=== PATIENT | male | born 1960 | race Caucasian/White ===

== ENCOUNTER 2022-07-18 08:35 | Outpatient (CLI) | payer BC, SELFPAY ==
--- OUTSIDE RECORDS SUMMARY | 2022-07-18 08:40 | XMS_ITS | Encounter Summary ---
:1960 Author Organization [facility] Address [address] [place] [address] Care Team Providers Name Role Phone [facility] Primary Care Provide r Encounter Details Date Type Department Care Team Description 09/20/2020 Travel Social History Tobacco Use Types Packs/Day Years Used Date Smoking Tobacco: Never Smokeless Tobacco: Never Alcohol Use Standard Drinks/Week Comments Yes 0 (1 standard drink = 0.6 oz pure alcoho l) rare Sex Assigned at Date Recorded Not on file COVID-19 Exposure Response Date Recorded In the last month, have you been in contact with No / Unsure 09/20/2020 8: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 documented as of this encounter Plan of Treatment Not on filedocumented as of this encounter Visit Diagnoses Not on filedocumented in this encounter Care Teams Hospital Mortician Relationship Specialty Start Date End Date [facility] PCP - General 09/07/201999 [place] [address] documented as of this encounter
--- OUTSIDE RECORDS SUMMARY | 2022-07-18 08:40 | XMS_ITS | Encounter Summary ---
:1960 Author Organization [place] Address [address] [place] [address]. [place] [address] Care Team Providers Name Role Phone Clinic, [facility] Primary Care Provide r Encounter Details Date Type Department Care Team Description 09/17/2020 Hospital Encounter [facility] Ann-Marie Drummond for [facility] MD [place] screening for other [address] [place] OPHTHALMIC viral diseases [place], [place] PLASTIC SURGERY [id number] [address] [facility] [phone] [facility] [address] [place] [address] Social History Tobacco Use Types Packs/Day Years Used Date Smoking Tobacco: Never Assessed Sex Assigned at Date Recorded Not on file COVID-19 Exposure Response Date Recorded In the last month, have you been in contact Unable to assess 09/17/2020 7:10 AM EMBEDDED SOFTWARE ARCHITECT with someone who was confirmed or suspected to have Coronavirus / COVID-19? documented as of this encounter Medications at Time of Discharge Medication Sig Dispensed Refills Start Date End Date erythromycin (ROMYCIN) 5 Apply topically 3 7 g 1 09/2020 MG/GM ophthalmic times daily Please ointmentIndications: Brow dispense two tubes ptosis, Dermatochalasis of -- apply thin both upper eyelids ribbon to upper eyelid and brow incisions 3x per day until sutures are removed. HYDROcodone-acetaminophen Take 1 tablet by 10 tablet 0 09/202009/23/2020 (NORCO) 5-325 MG mouth every 6 hours tabletIndications: Brow as needed for ptosis, Dermatochalasis of severe pain both upper eyelids documented as of this encounter Plan of Treatment Not on filedocumented as of this encounter Procedures Procedure Name Priority Date/Time Associated Diagnosis Comme nts SARS-COV-2 Routine 09/17/2020 11:00 AM Encounter for Results for this (COVID-19) VIRUS EMBEDDED SOFTWARE ARCHITECT screening for other proc edure are in RT-PCR viral diseases the results section. COVID-19 VIRUS Routine 09/17/2020 11:00 AM Encounter for Resul ts for this (CORONAVIRUS) BY EMBEDDED SOFTWARE ARCHITECT screening for other proc edure are in PCR viral diseases the results section. documented in this encounter Results SARS-CoV-2 COVID-19 Virus (Coronavirus) by PCR (09/17/2020 11:00 AM EMBEDDED SOFTWARE ARCHITECT) [facility] Method Time Signature SARS-CoV-2 Nasopharyngeal 09/18/2020 [facility] Virus 6:14 AM [facility] SARS-CoV-2 NEGATIVE 09/18/2020 [facility] PCR Result 6:14 AM [facility] Comment: SARS-CoV2 (COVID-19) RNA not de tected, presumed negative. SARS-CoV-2 PCR Comment (Note) 09/18/2020 6:14 A M [facility] Comment: Testing was performed using the kira SA RS-CoV-2 & Influenza A/B Assay on the kira Chelo System. This test should be ordered for the dete ction of SARS-COV-2 in individuals who meet SARS-CoV-2 clinical and/or epidemi ological criteria. Test performance is unknown in asymptomatic patients. This test is for in vitro diagnostic use under the FDA EUA for laboratories certified under CLIA to perform moderate and/or high complexity testing. This test has not been FDA cleared or approve d. A negative test does not rule out the pr esence of PCR inhibitors in the specimen or target RNA in concentration below the limit of detection for the assay. The possibility of a false negati ve should be considered if the patient's recent exposure or clinical pr esentation suggests COVID-19. [facility] are certi fied under the Clinical Laboratory Improvement Amendments of 1988 (CLIA-88) as qualified to perform moderate and/or high complexity laboratory testin g. Specimen (Source) Anatomical Collection Method Collection Time Re ceived Time Location / / Volume Laterality Specimen from 09/17/2020 11:00 09/17/2020 nasopharyngeal AM EMBEDDED SOFTWARE ARCHITECT 11:01 AM EMBEDDED SOFTWARE ARCHITECT structure (specimen) Ann-Marie Drummond MD LAB - MICRO GENERAL ORDERABL ES Performing Organization Address City/State/ZIP Code Phon e Number [facility] [address] [place] [address] [facility] Asymptomatic COVID-19 Virus (Coronavirus) by PCR (09/17/2020 11:00 AM EMBEDDED SOFTWARE ARCHITECT) Component Value Ref Test Analysis Performed At [facility] gist Range Method Time Signature COVID-19 Nasopharyngeal 09/17/2020 [place] Virus PCR to 11:00 AM RIDGES U [facility] Source COVID-19 Test received-See 09/17/2020 INFECTIOUS Virus PCR to reflex to IDDL 2:33 PM EMBEDDED SOFTWARE ARCHITECT DISEASES U [facility] - test SARS CoV2 DIAGNOSTIC Result (COVID-19) Virus LABORATORY, RT-PCR [facility] Specimen (Source) Anatomical Collection Method Collection Time Re ceived Time Location / / Volume Laterality Specimen from 09/17/2020 11:00 09/17/2020 nasopharyngeal AM EMBEDDED SOFTWARE ARCHITECT 11:01 AM EMBEDDED SOFTWARE ARCHITECT structure (specimen) Ann-Marie Drummond MD LAB - MICRO GENERAL ORDERABL ES Performing Organization Address City/State/ZIP Code Phon e Number INFECTIOUS DISEASES [address] [place] [address] DIAGNOSTIC LABORATORY, [facility] [address] [phone] documented in this encounter Visit Diagnoses Diagnosis Encounter for screening for other viral diseases documented in this encounter Care Teams Wet Pan Mixer Relationship Specialty Start Date End Date Clinic, [facility] PCP - General 09/07/201999 [place] [address] documented as of this encounter
--- OUTSIDE RECORDS SUMMARY | 2022-07-18 08:40 | XMS_ITS | Clinical Summary ---
:1960 Author Organization [place] Address [address] [place] [address] Care Team Providers Name Role Phone Clinic, [facility] Primary Care Provide r Allergies No known active allergies Medications Medication Sig Dispensed Refills Start Date End Date Status erythromycin (ROMYCIN) Apply topically 3 7 g 1 Active 5 MG/GM ophthalmic times daily ointmentIndications: Please dispense Brow ptosis, two tubes -- Dermatochalasis of both apply thin ribbon upper eyelids to upper eyelid and brow incisions 3x per day until sutures are removed. Social History Tobacco Use Types Packs/Day Years Used Date Smoking Tobacco: Never Smokeless Tobacco: Never Alcohol Use Standard Drinks/Week Comments Yes 0 (1 standard drink = 0.6 oz pure alcoho l) rare Sex Assigned at Date Recorded Not on file Last Filed Vital Signs Vital Sign Reading Time Taken Comments Blood Pressure 116/74 09/20/2020 1:27 PM SOLE LAYER Pulse 56 09/20/2020 1:27 PM SOLE LAYER Temperature 36 ??C (96.8 ??F) 09/20/2020 1:27 PM SOLE LAYER Respiratory Rate 16 09/20/2020 1:27 PM SOLE LAYER Oxygen Saturation 99% 09/20/2020 12:30 PM SOLE LAYER Inhaled Oxygen Concentration - - Weight 97.3 kg (214 lb 6.4 oz) 09/20/2020 8:43 AM SOLE LAYER Height 185.4 cm (6' 1) 09/20/2020 8:43 AM SOLE LAYER Body Mass Index 28.29 09/20/2020 8:43 AM SOLE LAYER Plan of Treatment Health Maintenance Due Date Last Done Comments ADVANCE CARE PLANNING 1960 ANNUAL REVIEW OF HM ORDERS 1960 CT COLONOGRAPHY 1960 FIT-DNA (Cologuard) 1960 FIT 1960 FLEX SIG 1960 HEPATITIS B IMMUNIZATION (1 1960 of 3 - 3-dose series) YEARLY PREVENTIVE VISIT 1960 COVID-19 Vaccine (#1) 01/01/1961 COLONOSCOPY 1970 COLORECTAL CANCER SCREENING 1970 HIV SCREENING 1975 HEPATITIS C SCREENING 1978 LIPID 1995 ZOSTER IMMUNIZATION (1 of 2010 2) DTAP/TDAP/TD IMMUNIZATION 05/06/2016 05/06/2006 (2 - Td or Tdap) PHQ-2 (once per calendar 08/19/2021 year) INFLUENZA VACCINE (#1) 2022 08/25/2020, 08/20/2019, 09/12/2017, Additional history exists IPV IMMUNIZATION Aged Out No longer eligi ble based on patient 's age to complete this topic MENINGITIS IMMUNIZATION Aged Out No longe r eligible based on patient 's age to complete this topic Pneumococcal Vaccine: Aged Out No longer eligible Pediatrics (0 to 5 Years) based on patient's age and At-Risk Patients (6 to to co mplete this topic 64 Years) Insurance Payer Benefit Plan / Subscriber ID Effective Dates Phone Addre ss Type Group BCBS [place] OF [place] [id number] 2018-Mony [phone] [address] [address] [address] [place] [address] Care Teams Negative Cutter Relationship Specialty Start Date End Date Clinic, [facility] PCP - General 09/07/201999 [place], [place] [id number]
--- OUTSIDE RECORDS SUMMARY | 2022-07-18 08:40 | XMS_ITS | Encounter Summary ---
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] Periop Services Procedures BILATERAL UPPER LID BLEPHAROPLASTY, BILATERAL DIRECT BROWPLASTY [address] [place] [address] Phone: Referral ID Status Reason Start Date Expiration Date Visits Requ ested Visits Authorized [id number] 1 1 Encounter Details Date Type Department Care Team Description 09/20/2020 Anesthesia Event [facility] Sherice Kwok MD [facility] [address] [place] [id number] [facility] Liz Milan, CLINICAL STAFF PHARMACIST [facility] [address] [phone] Services [address] [place] [address] Anesthesia Record Procedure Summary Procedure Name Responsible Anesthesia Start Anesthesia Stop Anesthesiologist Time Time BILATERAL UPPER LID Ranulfo Kwok, 09/20/20 1040 10/09 1152 MD MICHELLE BILATERAL DIRECT BROWPLASTY (Bilateral: Eye) Events Date Time Event Comment 09/20/2020 0918 1040 An Start 1040 An Start Data 1057 AN INCISION 1146 an stop data 1152 An Stop Electronically s igned by Liz Milan APRN CRNA on September 20, 2020 11:52 AM Name Total ePHEDrine 5 mg/mL 5 mg fentaNYL (SUBLIMAZE) injection 100 mcg lidocaine 2% 40 mg midazolam 1mg/mL 2 mg ondansetron 2mg/mL 4 mg propofol (DIPRIVAN) injection 10 mg/mL vial 265.14 mg No abx ordered pre-op 1 each LR 200 mL Agents Name NO HELIOX O2 N2O Air Exp Sevoflurane Exp Isoflurane Exp Desflurane Exp N2O O2 Delivery Device Ins Sevoflurane Ins Isoflurane Ins Desflurane O2 Auxiliary Blood No blood administrations on file. Lines, Drains, and Airways Type Details Placement Removal Incision/Surgical Site 09/20/20; 1111; Left; 09/20/20 1111 by Megha Calderon RN Incision/Surgical Site 09/20/20; 1111; Right; 09/20/20 1111 by EyeMegha Meyers RN Incision/Surgical Site 09/20/20; 1111; Left; 09/20/20 1111 by Upper Eyelid Megha Emmanuel RN Incision/Surgical Site 09/20/20; 1111; Right; 09/20/20 1111 by Upper Eyelid Megha Emmanuel RN Peripheral IV 09/20/20; 0921; 20 G; 09/20/20 0921 by 09/20/20 1300 by Left; Hand; Enma Sy Cavlan, Edson ael J, Chlorhexidine; None; RN RN Tolerated well documented in this encounter Social History Tobacco Use Types Packs/Day Years Used Date Smoking Tobacco: Never Smokeless Tobacco: Never Alcohol Use Standard Drinks/Week Comments Yes 0 (1 standard drink = 0.6 oz pure alcoho l) rare Sex Assigned at Date Recorded Not on file COVID-19 Exposure Response Date Recorded In the last month, have you been in contact with No / Unsure 09/20/2020 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 Anesthesia Type: MAC Note: Postop Pain Control: Uneventful Sign Out: Well controlled pain PONV: No Neuro/Psych: Uneventful Sign Out: Acceptable/Baseline neuro status Airway/Respiratory: Uneventful Sign Out: Acceptable/Baseline resp. status CV/Hemodynamics: Uneventful Sign Out: Acceptable CV status Other NRE: NONE DID A NON-ROUTINE EVENT OCCUR? 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 No past surgical history on file. No Known Allergies Social History Tobacco Use ??? Smoking status: Not on file Substance Use Topics ??? Alcohol use: Not on file Wt Readings from Last 1 Encounters: No data found for Wt Anesthesia Evaluation Pt has had prior anesthetic. Type: General. No history of anesthetic complications ROS/MED HX ENT/Pulmonary: Neurologic: Cardiovascular: METS/Exercise Tolerance: Hematologic: Musculoskeletal: (+) arthritis, GI/Hepatic: Renal/Genitourinary: (+) BPH, Endo: Psychiatric/Substance Use: Infectious Disease: Malignancy: Other: OUTSIDE LABS: CBC: No results found for: WBC, HGB, HCT, PLT BMP: No results found for: NA, POTASSIUM, CHLORIDE, CO2, BUN, CR, GLC COAGS: No results found for: PTT, INR, FIBR POC: No results found for: BGM, HCG, HCGS HEPATIC: No results found for: ALBUMIN, PROTTOTAL, ALT, AST, GGT, ALKPHOS, BILITOTAL, BILIDIRECT, ROSALIE OTHER: No results found for: PH, LACT, A1C, MIKE, PHOS, MAG, LIPASE, AMYLASE, TSH, T4, T3, CRP, SED Anesthesia Plan History & Physical Review ASA Status: 1. Plan for MAC Reason for MAC: Deep or markedly invasive procedure (G8). PONV prophylaxis: Ondansetron (or other 5HT-3). Consents Anesthesia Plan(s) and associated risks, benefits, and realistic alternatives discussed. Questions answered and patient/financial representative(s) expressed understanding. Discussed with: Patient. Postoperative Care Postoperative pain management: IV analgesics and Multi-modal analgesia. 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 Anesthesia Type: MAC Note: Oropharynx: oropharynx clear of all foreign objects and spontaneously breathing Level of Consciousness: awake Oxygen Supplementation: room air Independent Airway: airway patency satisfactory and stable Dentition: dentition unchanged Vital Signs Stable: post-procedure vital signs reviewed and stable Report to RN Given: handoff report given Patient transferred to: PACU Comments: At end of procedure, spontaneous respirations, patient alert to voice, able to follow commands. Patient breathing room air at room air to PACU. SpO2, NiBP, and EKG monitors and alarms on and functioning, report on patient's clinical status given to CHHA, RN questions answered. Handoff Report: Identifed the Patient, Identified the Reponsible Provider, Reviewed the pertinent medical history, Discussed the surgical course, Reviewed Intra-OP anesthesia mangement and issues during anesthesia, Set expectations for post-procedure period and Allowed opportunity for questions and acknowledgement of understanding Vitals: (Last set prior to Anesthesia Care Transfer) DROP FORGER VITALS 09/20/2020 1116 - 09/20/2020 1150 09/20/2020 Resp Rate (set): 10 Electronically Signed By: Liz Milan APRN CRNA September 20, 2020 11:50 AM PLANT HELPER documented in this encounter Plan of Treatment Not on filedocumented as of this encounter Visit Diagnoses Not on filedocumented in this encounter Administered Medications Inactive Administered Medications - up to 3 most recent administrations Medication Order MAR Action Action Date Dose Rate Site ePHEDrine injection Given 09/20/2020 11:01 AM ACID PLANT HELPER 5 mg PRN, Starting on Sat09/20/20 at 1101, Anesthesia Intra-op fentaNYL (PF) (SUBLIMAZE) injection Given 09/20/2020 10:50 AM ACID PLANT HELPER 50 mcg PRN, Administer over 3-5 Minutes, Starting on Sat09/20/20 at 1041, Anesthesia Intra-op Given 09/20/2020 10:41 AM ACID PLANT HELPER 50 mcg lactated ringers infusion New Bag 09/20/2020 10:40 AM ACID PLANT HELPER Intravenous, CONTINUOUS PRN, Anesthesia Intra-op, Starting on Sat09/20/20 at 1040, Until Sat09/20/20 at 1152 lidocaine 2% injection (MDV) Given 09/20/2020 10:41 AM ACID PLANT HELPER 40 mg PRN, Starting on Sat09/20/20 at 1041, Anesthesia Intra-op midazolam (VERSED) injection Given 09/20/2020 10:41 AM ACID PLANT HELPER 2 mg Administer over 2 Minutes, PRN, Starting on Sat09/20/20 at 1041, Anesthesia Intra-op No abx ordered pre-op Given 09/20/2020 10:40 AM ACID PLANT HELPER 1 each PRN, Starting on Sat09/20/20 at 1040, Until Sat09/20/20 at 1152, Anesthesia Intra-op ondansetron (ZOFRAN) injection Given 09/20/2020 10:59 AM ACID PLANT HELPER 4 mg PRN, Administer over 2-5 Minutes, Starting on Sat09/20/20 at 1059, Anesthesia Intra-op propofol (DIPRIVAN) Rate/Dose Change 09/20/2020 10:55 50 mcg/kg/min 2 9.2 mL/hr injection 10 mg/mL vial AM ACID PLANT HELPER CONTINUOUS PRN, Starting on Sat09/20/20 at 1042, Anesthesia Intra-op Rate/Dose Change 09/20/2020 10:50 AM ACID PLANT HELPER 75 mcg/kg/min 43.8 mL/hr Rate/Dose Change 09/20/2020 10:47 AM ACID PLANT HELPER 150 mcg/kg/min 87.6 mL/hr documented in this encounter Care Teams Final Assembler Boat Relationship Specialty Start Date End Date Clinic, [facility] PCP - General 09/07/201999 [place] [address] documented as of this encounter
--- OUTSIDE RECORDS SUMMARY | 2022-07-18 08:40 | XMS_ITS | Encounter Summary ---
:1960 Author Organization [facility] Address [address] [place] [address]. [place] [address] Care Team Providers Name Role Phone Clinic, 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] Sh Periop Services Procedures BILATERAL UPPER LID BLEPHAROPLASTY, BILATERAL DIRECT BROWPLASTY [address], [address] [place] [address] Phone: Referral ID Status Reason Start Date Expiration Date Visits Requ ested Visits Authorized [id number] 1 1 Encounter Details Date Type Department Care Team Description 09/20/2020 [facility] Ann-Marie Drummond Brow pt osis (Primary Dx); Encounter Mar Das MD Dermatochalasis of both upper eyelids PreOP/Phase II [place] [facility] [address], [address] [facility] [address] [address] [place] [address] [phone] Social History Tobacco Use Types Packs/Day Years Used Date Smoking Tobacco: Never Smokeless Tobacco: Never Alcohol Use Standard Drinks/Week Comments Yes 0 (1 standard drink = 0.6 oz pure alcoho l) rare Sex Assigned at Date Recorded Not on file COVID-19 Exposure Response Date Recorded In the last month, have you been in contact with No / Unsure 09/20/2020 8:10 AM FILLING STATION LABORER someone who was confirmed or suspected to have Coronavirus / COVID-19? documented as of this encounter Last Filed Vital Signs Vital Sign Reading Time Taken Comments Blood Pressure 116/74 09/20/2020 1:27 PM FILLING STATION LABORER Pulse 56 09/20/2020 1:27 PM FILLING STATION LABORER Temperature 36 ??C (96.8 ??F) 09/20/2020 1:27 PM FILLING STATION LABORER Respiratory Rate 16 09/20/2020 1:27 PM FILLING STATION LABORER Oxygen Saturation 99% 09/20/2020 12:30 PM FILLING STATION LABORER Inhaled Oxygen Concentration - - Weight 97.3 kg (214 lb 6.4 oz) 09/20/2020 8:43 AM FILLING STATION LABORER Height 185.4 cm (6' 1) 09/20/2020 8:43 AM FILLING STATION LABORER Body Mass Index 28.29 09/20/2020 8:43 AM FILLING STATION LABORER documented in this encounter Discharge Instructions Discharge InstructionsrGaham Piedra RN - 09/20/2020 12:26 PM CST Same Day Surgery Discharge Instructions for Sedation and General Anesthesia ?? It's not unusual to feel dizzy, light-headed or faint for up to 24 hours after surgery or while taking pain medication. If you have these symptoms: sit for a few minutes before standing and have someone assist you when you get up to walk or use the bathroom. ?? You should rest and relax for the next 24 hours. We recommend you make arrangements to have an adult stay with you for at least 24 hours after your discharge. Avoid hazardous and strenuous activity. ?? DO NOT DRIVE any vehicle or operate mechanical equipment for 24 hours following the end of your surgery. Even though you may feel normal, your reactions may be affected by the medication you have received. ?? Do not drink alcoholic beverages for 24 hours following surgery. ?? Slowly progress to your regular diet as you feel able. It's not unusual to feel nauseated and/or vomit after receiving anesthesia. If you develop these symptoms, drink clear liquids (apple juice, reema jer, broth, 7-up, etc. ) until you feel better. If your nausea and vomiting persists for 24 hours, please notify your surgeon. ?? All narcotic pain medications, along with inactivity and anesthesia, can cause constipation. Drinking plenty of liquids and increasing fiber intake will help. ?? For any questions of a medical nature, call your surgeon. ?? Do not make important decisions for 24 hours. ?? If you had general anesthesia, you may have a sore throat for a couple of days related to the breathing tube used during surgery. You may use Cepacol lozenges to help with this discomfort. If it worsens or if you develop a fever, contact your surgeon. ?? If you feel your pain is not well managed with the pain medications prescribed by your surgeon, please contact your surgeon's office to let them know so they can address your concerns. CoVid 19 Information We want to give you information regarding Covid. Please consult your primary care provider with any questions you might have. Patient who have symptoms (cough, fever, or shortness of breath), need to isolate for 7 days from when symptoms started OR 72 hours after fever resolves (without fever reducing medications) AND improvement of respiratory symptoms (whichever is longer). ?? Isolate yourself at home (in own room/own bathroom if possible) ?? Do Not allow any visitors ?? Do Not go to work or school ?? Do Not go to christianity, director child centers, shopping, or other public places. ?? Do Not shake hands. ?? Avoid close and intimate contact with others (hugging, kissing). ?? Follow CDC recommendations for household cleaning of frequently touched services. After the initial 7 days, continue to isolate yourself from household members as much as possible. To continue decrease the risk of community spread and exposure, you and any members of your household should limit activities in public for 14 days after starting home isolation. You can reference the following CDC link for helpful home isolation/care tips: https://www.cdc.gov/coronavirus/2019-ncov/downloads/10Things.pdf Protect Others: ?? Cover Your Mouth and Nose with a mask, disposable tissue or wash cloth to avoid spreading germs to others. ?? Wash your hands and face frequently with soap and water Call Your Primary Doctor If: Breathing difficulty develops or you become worse. For more information about COVID19 and options for caring for yourself at home, please visit the CDCwebsite at https://www.cdc.gov/coronavirus/2019-ncov/about/xgqls-xwxf-jvcu.html For more options for care at [facility], please visit our website at [email or web address] Eyelid/Orbital Surgery Discharge Instructions Dr. Ann-Marie Drummond ICE COMPRESSES Immediately following surgery, you should begin to apply ice compresses. Apply a cold gel pack or wrap a clean washcloth around a cup of crushed ice in a plastic bag (a bag of frozen peas also works well) and hold the cold compresses directly against the closed eyelid (s).Apply cold pack for a minimumof six times daily for no longer than 15 minutes at a time. Continue cold compresses every day untilthe bruising and swelling begin to subside. This can vary for each patient, but three days may be common. HOT COMPRESSES After your swelling and bruising have begun to subside, hot compresses should be applied. Take a clean washcloth and wring it out in hot water (as warm as you can tolerate comfortably). Hold this warm compress against the closed eyelid(s) at least six times per day for 15 minutes. This should be continued for about two weeks. OINTMENT You may be given some ointment when you leave the hospital. Apply this ointment as directed per pharmacy label for 7 days. Expect some blurring of vision from the ointment. ACTIVITY Avoid heavy lifting or vigorous exercise for one week after surgery. You may resume regular activities as tolerated. You may shower and wash your hair on the day after surgery; be careful to avoid soaking the wounds or getting shampoo in your eyes. While your eyes are still swollen, it is recommended you sleep on your back and elevate your head with 2-3 pillows. MEDICATION If the doctor has given you some medications to take after surgery, please take these according to the instructions on the bottle. Pain medications may make you drowsy so do not drive, operate heavy machinery, or use alcohol while taking it. When you feel that you do not need the prescription pain medication, you may substitute Extra Strength Tylenol for mild pain by also following the directions on the bottle. If you were taking Aspirin prior to your surgery, you may resume this medication tomorrow. If you were on an anticoagulant, you may resume taking it with the next scheduled dose. WHAT TO EXPECT You should expect some slight oozing of blood from the incision site over the first two to three days after surgery. Swelling and bruising will occur for one to two weeks or longer. You may also experience itching and tearing during the first several weeks after surgery. This is part of the normal healing process QUESTIONS Please feel free to contact the office, should you have any questions that are not answered above. The phone number is . Please call immediately if you are unable to establish vision in the operative eye, you are experiencing heavy bleeding that will not stop with gentle pressure or you have any signs of an infection (greenish/yellow discharge or progressive redness). [facility] [address] [place], [place] [address] If you have questions or concerns about your procedure, call Dr. Drummond at [phone] ING STATION LABORER documented in this encounter Medications at Time of Discharge [...] upper eyelids documented as of this encounter H&P Notes Ranulfo Kwok MD - 09/20/2020 8:22 AM CST I have reviewed the surgical (or preoperative) H&P that is linked to this encounter, and examined the patient. There are no significant changes ING STATION LABORER Source Note - Aditi Villalpando - 09/15/2020 8:29 AM FILLING STATION LABORER documented in this encounter Nursing Notes Graham Piedra RN - 09/20/2020 1:05 PM CST PNDS met, po per I&O sheet. Pt dressed, up in recliner and transported to Phase 2. ING STATION LABORER documented in this encounter Miscellaneous Notes Op Note - Ann-Marie Drummond MD - 09/20/2020 11:58 AM CST Pre-operative Diagnosis:?? 1 .Visually significant??dermatochalasis 2. Visually significant brow ptosis ?? Post-operative Diagnosis: Same as above? Procedure(s):?? 1. Bilateral upper eyelid??blepharoplasty??with medial fat excision 2. Bilateral brow ptosis repair (direct browplasty) two incisions per side (medial and lateral) Surgeon:??Ann-Marie Drummond MD ? Anesthesia:?Monitored anesthesia care with local anesthetic ? Blood loss:??<5??cc ? Specimens: None ?? Findings: See operative report for details ? Complications:??None ? Operative Procedure: In the pre operative area, the planned procedure was again discussed with the patient as well as therisks/benefits/alternatives.??The patient was brought to the operating room.?? A time out was performed to ensure the correct surgical site was being operated on.?? Topical anesthesia was placed in both eyes.?? The eyelid skin was??cleaned with isopropyl alcohol. Blepharoplasty incisions were markedwith care taken to avoid post operative lagophthalmos.??Browplasty incisions were also marked with care taken to use the patient's natural creases.??Local anesthetic was injected.?? The patient was prepped and draped in the usual sterile fashion. ? Attention was turned to the brow markings. An incision was made through the skin and the tissue was dissected in a subcutaneous plane. Hemostasis was achieved with cautery. The deep tissue was closed with buried, interrupted 4-0 vicryl sutures and the skin edges were closed with 5-0 Prolene in a running fashion with care taken to ammon the skin edges. The same procedure was performed on the side. ?? Attention was directed to the upper eyelids. ??An incision was made with the #15 blade through the skin. The tissue was removed in a preseptal plane. ??Hemostasis was achieved with cautery. Hemostasis was again confirmed.?Temporally, some orbicularis was removed to prevent post op brow ptosis. Thissame procedure was performed on each side. The??upper??eyelid skins edges were then??closed with??6-0 Prolene suture in a??running fashion.? The eyelids were washed with wet 4x4 gauze. Antibiotic ointment was placed on each eyelid.??The patient was??transferred to recovery in stable position.?Ice packs were placed on each eyelid.?The patient will return for a post-operative follow up appointment, sooner with any decrease in vision, increase in pain, redness, or bleeding.? Ann-Marie Drummond MD ?? ING STATION LABORER documented in this encounter Plan of Treatment Not on filedocumented as of this encounter Procedures Procedure Name Priority Date/Time Associated Diagnosis Comme nts COMBINED 09/20/2020 10:30 AM Mechanical ptosis of BLEPHAROPLASTY, BROW FILLING STATION LABORER eyelid of b oth eyes LIFT BILATERAL Ptosis of both eyebrows Special Needs BILATERAL CONFIRMED LAB RESULT - HIM SCAN 08/25/2020 12:00 AM FILLING STATION LABORER documented in this encounter Results LAB RESULT - HIM SCAN (08/25/2020 12:00 AM FILLING STATION LABORER) Specimen (Source) Anatomical Location Collection Method / Collectio n Time Received Time / Laterality Volume 08/25/2020 Narrative This result has an attachment that is no t available. Provider Outside NON-BEAKER LAB TESTING documented in this encounter Visit Diagnoses Diagnosis Brow ptosis - Primary Unspecified ptosis of eyelid Dermatochalasis of both upper eyelids documented in this encounter Administered Medications Inactive Administered Medications - up to 3 most recent administrations Medication Order MAR Action Action Date Dose Rate Site HYDROcodone-acetaminophen Given 09/20/2020 12:32 PM FILLING STATION LABORER 1 tablet (NORCO) 5-325 MG per tablet 1 tablet 1 tablet, Oral, EVERY 6 HOURS PRN, moderate to severe pain, Starting on Sat09/20/20 at 1230, Maximum acetaminophen dose from all sources= 75 mg/kg/day not to exceed 4 grams, PACU documented in this encounter Active and Recently Administered Medications Times are shown in FILLING STATION LABORER. PRN Medication Order 09/18/2020 09/19/2020 09/20/2020 bupivacaine 0.5% w/EPI 20mL + lidocaine 2% w/EPI 1:100,000 20mL (CANCELED) 1139 (Given - Provider: Ann-Marie Drummond MD) PRN, Starting 09/20/20 at 1139, Intra-procedure erythromycin (ROMYCIN) ophthalmic ointment (CANCELED) 1135 (Given - Provider: Ann-Marie Drummond MD) PRN, Starting 09/20/20 at 1135, Intra-procedure HYDROcodone-acetaminophen (NORCO) 5-325 MG per tablet 1 tablet ( CANCELED) 1232 (Given - Provider: Graham Piedra RN) 1 tablet, Oral, EVERY 6 HOURS PRN, moder ate to severe pain, Starting 09/20/20 at 1230, Maximum acetaminophen dose from all sources= 75 mg/kg/day not to exceed 4 grams, PACU documented in this encounter Care Teams Broadcast Checker Relationship Specialty Start Date End Date [facility] PCP - General 09/07/201999 [place] [id number] documented as of this encounter
--- OUTSIDE RECORDS SUMMARY | 2022-07-18 08:40 | XMS_ITS | Encounter Summary ---
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] Periop Services Procedures BILATERAL UPPER LID BLEPHAROPLASTY, BILATERAL DIRECT BROWPLASTY [address], [address] [place] [address] Phone: Referral ID Status Reason Start Date Expiration Date Visits Requ ested Visits Authorized [id number] 1 1 Encounter Details Date Type Department Care Team Description 09/20/2020 Surgery [facility] [place] [facility] Ann-Marie Drummond [place] UPPER LID [place] PeriOP MD [place] BLEPHAROPLASTY, Services [place] OPHTHALMIC PLASTIC BILATERAL DIRECT [address], SURGERY BROWPLASTY [address] [place] [address] [address] [place] [address] (Wo rk) Surgery Details Date/Time Status Location OR Service Patient Case Case Traum a Class Class Type Case? 09/20/20 10:20 Posted OR OR Ophthalmology Same Day AM 23 Surgery Panel 1 Procedure LRB Anes Op Region Wound Class Commen ts BILATERAL UPPER LID BLEPHAROPLASTY, Bilateral MAC Eye I-Clean BILATERAL DIRECT BROWPLASTY Surgeon Surgeon Role Service Panel Ann-Marie Drummond MD Primary Ophthalmology 1 Special Needs BILATERAL CONFIRMED documented in this encounter Social History Tobacco [...] with No / Unsure 09/20/2020 8:10 AM JOB PRINTER someone who was confirmed or suspected to have Coronavirus / COVID-19? documented as of this encounter Last Filed Vital Signs Vital Sign Reading Time Taken Comments Blood Pressure 120/82 09/20/2020 8:43 AM JOB PRINTER Pulse 52 09/20/2020 8:43 AM JOB PRINTER Temperature 35.8 ??C (96.5 ??F) 09/20/2020 8:43 AM JOB PRINTER Respiratory Rate 18 09/20/2020 8:43 AM JOB PRINTER Oxygen Saturation 100% 09/20/2020 8:43 AM JOB PRINTER Inhaled Oxygen Concentration - - Weight 97.3 kg (214 lb 6.4 oz) 09/20/2020 8:43 AM JOB PRINTER Height 185.4 cm (6' 1) 09/20/2020 8:43 AM JOB PRINTER Body Mass Index 28.29 09/20/2020 8:43 AM JOB PRINTER documented in this encounter Discharge Instructions Discharge InstructionsGraham Piedra RN - 09/20/2020 12:26 PM CST [...] or school ?? Do Not go to alevism, childrens club attendant centers, shopping, or other public places. ?? [...] at home, please visit the CDCwebsite at https://www.cdc.gov/coronavirus/2019-ncov/about/jaemi-pbfu-pdus.html For more options for care at [facility] [place] [facility], please visit our website at [email or web address] [facility] Eyelid/Orbital Surgery Discharge Instructions Dr. Ann-Marie [...] an infection (greenish/yellow discharge or progressive redness). [facility] [address] [place], [place] [address] If you have questions or concerns about your procedure, call Dr. Drummond at [phone] PRINTER documented in this encounter Medications at Time [...] the patient. There are no significant changes PRINTER Source Note - Irasema, Provider - 09/15/2020 8:29 AM JOB PRINTER documented in this encounter Nursing Notes Graham Piedra RN - 09/20/2020 1:05 PM CST PNDS met, po per I&O sheet. Pt dressed, up in recliner and transported to Phase 2. PRINTER documented in this encounter Miscellaneous Notes Op [...] redness, or bleeding.? Ann-Marie Drummond MD ?? PRINTER documented in this encounter Plan of Treatment Not on filedocumented as of this encounter Procedures Procedure Name Priority Date/Time Associated Diagnosis Comme nts COMBINED 09/20/2020 10:30 AM Mechanical ptosis of BLEPHAROPLASTY, BROW JOB PRINTER eyelid of b oth eyes LIFT BILATERAL Ptosis of both eyebrows Special Needs BILATERAL CONFIRMED LAB RESULT - HIM SCAN 08/25/2020 12:00 AM JOB PRINTER documented in this encounter Results LAB RESULT - HIM SCAN (08/25/2020 12:00 AM JOB PRINTER) Specimen (Source) Anatomical Location Collection Method / Collectio n Time Received Time / Laterality Volume 08/25/2020 Narrative This result has an attachment that is no t available. 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 Mechanical ptosis Ptosis of both eyebrows documented in this encounter Administered Medications Inactive Administered Medications - up to 3 most recent administrations Medication Order MAR Action Action Date Dose Rate Site bupivacaine 0.5% w/EPI Given 09/20/2020 11:39 13 mLs Operative 20mL + lidocaine 2% AM JOB PRINTER Site/ Surgical Site w/EPI 1:100,000 20mL PRN, Starting on Sat09/20/20 at 1139, Intra-procedure erythromycin (ROMYCIN) Given 09/20/2020 11:35 AM 1 g Operative Site/Surgical ophthalmic ointment JOB PRINTER Site PRN, Starting on Sat09/20/20 at 1135, Intra-procedure HYDROcodone-acetaminophen (NORCO) 5-325 MG Given 09/20 12:32 PM JOB PRINTER 1 tablet per tablet 1 tablet 1 tablet, Oral, EVERY 6 HOURS PRN, moderate to severe pain, Starting on Sat09/20/20 at 1230, Maximum acetaminophen dose from all sources= 75 mg/kg/day not to exceed 4 grams, PACU documented in this encounter Active and Recently Administered Medications Times are shown in JOB PRINTER. PRN Medication Order 09/18/2020 09/19/2020 09/20/2020 bupivacaine 0.5% w/EPI 20mL + lidocaine 2% w/EPI 1:100,000 20mL (CANCELED) 1139 (Given - Provider: Ann-Marie Drummond MD) PRN, Starting Sat09/20/20 at 1139, Intra-procedure erythromycin (ROMYCIN) ophthalmic ointment (CANCELED) 1135 (Given - Provider: Ann-Marie Drummond MD) PRN, Starting Sat09/20/20 at 1135, Intra-procedure HYDROcodone-acetaminophen (NORCO) 5-325 MG per tablet 1 tablet ( CANCELED) 1232 (Given - Provider: Graham Piedra RN) 1 tablet, Oral, EVERY 6 HOURS PRN, moder ate to severe pain, Starting Sat09/20/20 at 1230, Maximum acetaminophen dose from all sources= 75 mg/kg/day not to exceed 4 grams, PACU documented in this encounter Care Teams Disability Hearing Officer Relationship Specialty Start Date End Date [facility], [facility] PCP - General 09/07/201999 [place] [address] documented as of this encounter
--- OUTSIDE RECORDS SUMMARY | 2022-07-18 08:40 | XMS_ITS | Encounter Summary ---
:1960 Author Organization [facility] Address [address] [place] [address] Care Team Providers Name Role Phone [facility] Primary Care Provide r Encounter Details Date Type Department Care Team Description 09/17/2020 Travel Social History Tobacco Use Types Packs/Day Years Used Date Smoking Tobacco: Never Assessed Sex Assigned at Date Recorded Not on file COVID-19 Exposure Response Date Recorded In the last month, have you been in contact Unable to assess 09/17/2020 7:10 AM MAJOR GIFTS DIRECTOR with someone who was confirmed or suspected to have Coronavirus / COVID-19? documented as of this encounter Plan of Treatment Not on filedocumented as of this encounter Visit Diagnoses Not on filedocumented in this encounter Care Teams Willower Relationship Specialty Start Date End Date [facility] PCP - General 09/07/201999 [place] [address] documented as of this encounter
--- OUTSIDE RECORDS SUMMARY | 2022-07-18 08:40 | XMS_ITS | Encounter Summary ---
:1960 Author Organization [facility] Address [address] [place] [id number] Care Team Providers Name Role Phone Unavailable Primary Care Provider Unavailable Encounter Details Date Type Department Care Team Description 08/29/2020 Orders Only [facility] Ann-Marie Rocha er for Yarielchico Tnoy OR MD Pippa screening for other [id number]O OPHTHALMIC viral diseases [place] [id number] PLASTIC SURGERY (Primary Dx) [phone] [address] EL[address] [place]HELPS [address] (Wo rk) Social History Tobacco Use Types Packs/Day Years Used Date Smoking Tobacco: Never Assessed Sex Assigned at Date Recorded Not on file documented as of this encounter Plan of Treatment Not on filedocumented as of this encounter Results Asymptomatic COVID-19 Virus (Coronavirus) by PCR (09/17/2020 11:00 AM [facility]) Component Value Ref Test Analysis Performed At [facility] Range Method Time Signature COVID-19 Nasopharyngeal 09/17/2020 [place] Virus PCR to 11:00 AM [facility] Source COVID-19 Test received-See 09/17/2020 INFECTIOUS Virus PCR to reflex to IDDL 2:33 PM [facility] DISEAS[facility] - test SARS CoV2 DIAGNOSTIC Result (COVID-19) Virus LABORATORY, RT-PCR [facility] Specimen (Source) Anatomical Collection Method Collection Time Re ceived Time Location / / Volume Laterality Specimen from 09/17/2020 11:00 09/17/2020 nasopharyngeal AM [facility] 11:01 AM [facility] structure (specimen) Ann-Marie Drummond MD LAB - MICRO GENERAL ORDERABL ES Performing Organization Address City/State/ZIP Code Phon e Number INFECTIOUS DISEASES [address] [place] [address] DIAGNOSTIC LABORATORY, [facility] [address] [phone] documented in this encounter Visit Diagnoses Diagnosis Encounter for screening for other viral diseases - Primary documented in this encounter
[2022-07-18 11:16] LABS: Chloride* 109 mmol/L (96-114); Potassium* 4.4 mmol/L (3.6-5.1); Sodium* 142 mmol/L (135-149)
[2022-07-18 11:18] LABS: Bilirubin Total* 0.8 mg/dL (0.1-1.5); Carbon Dioxide* 30 mmol/L (20-32); Cholesterol* 139 mg/dL (90-199); Creatinine* 0.9 mg/dL (0.5-1.5); Estimated Glomerular Filt Rate 97 ml/min
[2022-07-18 11:19] LABS: Alanine Aminotransferase* 26 U/L (4-50); Alkaline Phosphatase* 89 U/L (40-150); Aspartate Amino Transferase* 32 U/L (12-35); Blood Urea Nitrogen* 18 mg/dL (7-30); Calcium* 9.1 mg/dL (8.4-10.6); Glucose* 95 mg/dL (60-115); HDL Cholesterol* 45 mg/dL (>=40); LDL Cholesterol Calculated 83 mg/dL (<100); Total Protein* 6.6 g/dL (6.0-8.3); Triglycerides* 54 mg/dL (40-149)
[2022-07-18 11:49] LABS: PSA Screen* 1.25 ng/mL (0.10-4.00)
== END 2022-07-18 08:36 | disposition home or self-care (01) ==
PROVIDERS: PCP Internal Medicine; Visit Provider Internal Medicine
DX: Z00.00 Encounter for general adult medical examination without abnormal findings (principal); Z13.6 Encounter for screening for cardiovascular disorders; Z12.5 Encounter for screening for malignant neoplasm of prostate
CPT/HCPCS: 80053; 80061; 84153

== ENCOUNTER 2023-09-17 08:51 | Outpatient (CLI) | payer BC, SELFPAY ==
--- OUTSIDE RECORDS SUMMARY | 2023-09-17 09:15 | XMS_ITS | Referral Summary ---
Author Name Unknown Organization [facility] Address [address] [place] [address] Care Team Providers Care Diesel Engine Mechanic Apprentice Name Role Phone Clinic, [facility] Primary Care Provider Allergies No known active allergies Medications Medication Sig Dispensed Refills Start Date End Date Status erythromycin (ROMYCIN) 5 MG/GM ophthalmic ointmentIndications:B row ptosis,Dermatochalasi s of both upper eyelids Apply topically 3 times daily Please dispense two tubes -- apply thin ribbon to upper eyelid and brow incisions 3x per day until sutures are removed. 7 g 1 09/20/2020 Active Social History Tobacco Use Types Packs/Day Years Used Date Smoking Tobacco: Never Smokeless Tobacco: Never Alcohol Use Standard Drinks/Week Comments Yes 0 (1 standard drink = 0.6 oz pur e alcohol) rare Adolescent Education Answer Date Record ed Getting School Help Needed Not on file 05/11 Sex and Gender Information Value Date Recorded Sex Assigned at Not on file Gender Identity Not on file Sexual Orientation Not on file Last Filed Vital Signs Vital Sign Reading Time Taken Comments Blood Pressure 116/74 09/20/2020 1:27 PM RISK PREVENTION ENGINEER Pulse 56 09/20/2020 1:27 PM RISK PREVENTION ENGINEER Temperature 36 ??C (96.8 ??F) 09/20/2020 1:27 PM RISK PREVENTION ENGINEER Respiratory Rate 16 09/20/2020 1:27 PM RISK PREVENTION ENGINEER Oxygen Saturation 99% 09/20/2020 12:30 PM RISK PREVENTION ENGINEER Inhaled Oxygen Concentration - - Weight 97.3 kg (214 lb 6.4 oz) 09/20/2020 8:43 A M RISK PREVENTION ENGINEER Height 185.4 cm (6' 1) 09/20/2020 8:43 AM RISK PREVENTION ENGINEER Body Mass Index 28.29 09/20/2020 8:43 AM RISK PREVENTION ENGINEER Plan of Treatment Not on file Care Teams Diesel Engine Mechanic Apprentice Relationship Specialty Start Date End Date Clinic, [facility] [address] [place] [address] PCP - General 09/07/20
--- OUTSIDE RECORDS SUMMARY | 2023-09-17 09:15 | XMS_ITS | Clinical Summary ---
Author Name Unknown Organization [place] Address [address] [place] [address] Care Team Providers Care Pe Manager Name Role Phone Clinic, [facility] Primary Care Provider Allergies No known active [...] Comments Blood Pressure 116/74 09/20/2020 1:27 PM BLIND CLEANER Pulse 56 09/20/2020 1:27 PM BLIND CLEANER Temperature 36 ??C (96.8 ??F) 09/20/2020 1:27 PM BLIND CLEANER Respiratory Rate 16 09/20/2020 1:27 PM BLIND CLEANER Oxygen Saturation 99% 09/20/2020 12:30 PM BLIND CLEANER Inhaled Oxygen Concentration - - Weight 97.3 kg (214 lb 6.4 oz) 09/20/2020 8:43 A M BLIND CLEANER Height 185.4 cm (6' 1) 09/20/2020 8:43 AM BLIND CLEANER Body Mass Index 28.29 09/20/2020 8:43 AM BLIND CLEANER Plan of Treatment Health Maintenance Due Date Last Done Comments ADVANCE CARE PLANNING 1960 ANNUAL REVIEW OF HM ORDERS 1960 CT COLONOGRAPHY 1960 FIT 1960 FLEX SIG 1960 YEARLY PREVENTIVE VISIT 1960 sDNA (Cologuard) 1960 COVID-19 Vaccine (#1) 01/01/1961 COLONOSCOPY 1970 COLORECTAL CANCER SCREENING 1970 HIV SCREENING 1975 HEPATITIS C SCREENING 1978 LIPID 1995 DTAP/TDAP/TD IMMUNIZATION (1 - Tdap) 05/07/2006 05/06/2006 ZOSTER IMMUNIZATION (1 of 2) 2010 RSV VACCINE ( & 60+) (1 - 1-dose 60+ series) 2020 INFLUENZA VACCINE (#1) 2023 , 08/20/2019, 09/12/2017, Additional history exists PHQ-2 (once per calendar year) 2023 HPV IMMUNIZATION Aged Out No longer e ligible based on patient's age to complete this topic IPV IMMUNIZATION Aged Out No longer e ligible based on patient's age to complete this topic MENINGITIS IMMUNIZATION Aged Out No l onger eligible based on patient's age to complete this topic Pneumococcal Vaccine: Pediatrics (0 to 5 Years) and At-Risk Patients (6 to 64 Years) Aged Out No longer eligible based on patient's age to complete this topic RSV MONOCLONAL ANTIBODY Aged Out No l onger eligible based on patient's age to complete this topic Care Teams Pe Manager Relationship Specialty Start Date End Date Clinic, [facility] [address] [place] [address] PCP - General 09/07/20
== END 2023-09-17 08:52 | disposition home or self-care (01) ==
PROVIDERS: PCP Internal Medicine; Visit Provider Internal Medicine
DX: Z12.5 Encounter for screening for malignant neoplasm of prostate (principal); Z13.220 Encounter for screening for lipoid disorders; Z13.228 Encounter for screening for other metabolic disorders
CPT/HCPCS: 80053; 80061; G0103

== ENCOUNTER 2024-09-22 08:57 | Outpatient (CLI) | payer BC, SELFPAY | END 2024-09-22 08:58 | disposition home or self-care (01) | PROVIDERS: PCP Internal Medicine; Visit Provider Internal Medicine | DX: D64.9 Anemia, unspecified (principal); Z13.6 Encounter for screening for cardiovascular disorders; Z12.5 Encounter for screening for malignant neoplasm of prostate; G62.9 Polyneuropathy, unspecified | CPT/HCPCS: 80053; 80061; G0103 ==

== ENCOUNTER 2025-01-13 11:09 | Outpatient (CLI) | payer BC, SELFPAY | END 2025-01-13 11:10 | disposition home or self-care (01) | LOC: NFLDREF 01-15 15:17 | PROVIDERS: PCP Internal Medicine; Referring Provider Internal Medicine; Visit Provider Internal Medicine | DX: D64.9 Anemia, unspecified (principal) | CPT/HCPCS: 87338 ==

== ENCOUNTER 2025-08-10 10:47 | Outpatient (CLI) | payer BC, SELFPAY | END 2025-08-10 10:48 | disposition home or self-care (01) | PROVIDERS: PCP Internal Medicine; Visit Provider Internal Medicine | DX: E78.5 Hyperlipidemia, unspecified (principal); Z13.9 Encounter for screening, unspecified | CPT/HCPCS: 80053; 80061; G0103 ==